=== PATIENT | female | born 1945 | race Caucasian/White ===

== ENCOUNTER 2017-04-25 00:52 | Inpatient (IN) | payer MEDICARE, BC ==
[~2017-04-25] VITALS: Ht 154.9 cm; Wt 61.0 kg
[2017-04-25] VITALS (474 sets, daily range): BP systolic 138–159; BP diastolic 58–76; PULSE 79–96; TEMP 98.1–98.6; O2SAT 82–99
[2017-04-25] MEDS ORDERED: MOBIC15 MG PO (01:50)
[2017-04-25 02:16] LABS: HEMATOCRIT 37.3 % (37.0-47.0); MEAN CELL VOLUME 103 fl (80.0-100.0); MEAN CORPUSCULAR HEMOGLOBIN 33 pg (27.0-31.0); MEAN CORPUSCULAR HGB CONC 32 g/dl (33.0-37.0); MEAN PLATELET VOLUME 12.5 fl (7.4-10.4); PLATELET COUNT 419 K/mm3 (130-400); RED BLOOD COUNT 3.61 M/mm3 (4.10-5.30)
[2017-04-25 02:17] LABS: HEMOGLOBIN 11.9 g/dl (12.5-16.0); WHITE BLOOD COUNT 20.3 K/mm3 (4.8-10.8)
[2017-04-25 02:18] LABS: ADD PATHOLOGY DIFF REVIEW NO
[2017-04-25 02:24] LABS: ADJUSTED CALCIUM 9.2 mg/dL (8.4-10.2); ALANINE AMINOTRANSFERASE 27 U/L (9-52); ALBUMIN 4.5 gm/dL (3.5-5.0); ALKALINE PHOSPHATASE 98 U/L (50-136); ANION GAP 11 mmol/L (7-16); BILIRUBIN,TOTAL 0.5 mg/dL (0.0-1.0); BLOOD UREA NITROGEN 15 mg/dL (7-17); C-REACTIVE PROTEIN 3.7 mg/dL (0.0-0.9); CALCIUM 9.6 mg/dL (8.4-10.2); CARBON DIOXIDE 26 mmol/L (22-30); CHLORIDE 105 mmol/L (98-107); CREATININE, serum 0.73 mg/dL (0.52-1.25); GLUCOSE 130 mg/dL (74-106); SODIUM 141 mmol/L (137-145); TOTAL PROTEIN 7.9 gm/dL (6.4-8.2)
[2017-04-25 02:35] LABS: TROPONIN-I < 0.012 ng/mL (0.000-0.034)
[2017-04-25 02:48] LABS: INFLUENZA A NEGATIVE; INFLUENZA B NEGATIVE
[2017-04-25 02:50] LABS: BAND 3 % (0-10); EOSINOPHIL 5 % (0-4); LYMPHOCYTE 11 % (20.0-51.0); NEUTROPHILS 70 % (42.0-75.2); PLATELET ESTIMATE INCREASED (NORMAL); TOTAL CELLS COUNTED 100
[2017-04-26 03:30] VITALS: BP 118/58; PULSE 78; TEMP 98.3
[2017-04-26 06:30] LABS: MEAN CELL VOLUME 103 fl (80.0-100.0); MEAN CORPUSCULAR HGB CONC 32 g/dl (33.0-37.0); MEAN PLATELET VOLUME 12.1 fl (7.4-10.4); PLATELET COUNT 386 K/mm3 (130-400); RED BLOOD COUNT 3.13 M/mm3 (4.10-5.30)
[2017-04-26 06:32] LABS: HEMATOCRIT 32.2 % (37.0-47.0); HEMOGLOBIN 10.3 g/dl (12.5-16.0); MEAN CORPUSCULAR HEMOGLOBIN 33 pg (27.0-31.0); WHITE BLOOD COUNT 25.8 K/mm3 (4.8-10.8)
[2017-04-26 06:33] LABS: ADD PATHOLOGY DIFF REVIEW NO
[2017-04-26 06:41] LABS: CALCIUM 8.9 mg/dL (8.4-10.2); CREATININE, serum 0.69 mg/dL (0.52-1.25); POTASSIUM 3.9 mmol/L (3.4-5.0)
[2017-04-26 07:17] VITALS: BP 111/56; PULSE 72; TEMP 97.5
[2017-04-26 08:02] LABS: BAND 12 % (0-10); LYMPHOCYTE 3 % (20.0-51.0); NEUTROPHILS 84 % (42.0-75.2); TOTAL CELLS COUNTED 100
[2017-04-26 08:03] LABS: PLATELET ESTIMATE NORMAL (NORMAL)
[2017-04-26 08:04] LABS: ANISOCYTOSIS 1+
[2017-04-26 08:05] LABS: HYPOCHROMIA 1+
[2017-04-26] MEDS ORDERED: DECADRON 4MG TAB4 MG PO ×2 (09:22→11:59)
[2017-04-26] MEDS ORDERED: AUGMENTIN ES-6125 ML PO (09:22)
== END 2017-04-26 11:15 | disposition home or self-care (01) | DRG 153 ==
LOC: COL.ER 00:52 → ICU 05:17 → MEDICAL 16:15
PROVIDERS: Emergency Medicine; Nurse Practitioner Family
PROC: 0CJS8ZZ Inspection of Larynx, Via Natural or Artificial Opening Endoscopic (ICD-10-PCS; principal; 2017-04-25)
DX: J04.0 Acute laryngitis (principal); J05.10 Acute epiglottitis without obstruction; R65.10 Systemic inflammatory response syndrome (SIRS) of non-infectious origin without acute organ dysfunction; D53.9 Nutritional anemia, unspecified; D69.6 Thrombocytopenia, unspecified; Z90.5 Acquired absence of kidney; Z90.81 Acquired absence of spleen
CPT/HCPCS: 99222-AI; 99239; J1100; J1644; J2543; J3370; J7030; J7050; J7120; Q9967

== ENCOUNTER 2017-10-15 08:22 | Day surgery (SDC) | payer MEDICARE, BC ==
[~2017-10-15] VITALS: Ht 157.5 cm; Wt 58.4 kg
[~2017-10-15 08:22] MED LIST: AUGMENTIN ES-6125 ML PO; DECADRON 4MG TAB4 MG PO; MOBIC15 MG PO
[2017-10-15] MEDS ORDERED: ADVIL200 MG PO (08:50)
[2017-10-15 09:13] VITALS: BP 144/61; PULSE 79; TEMP 98.3
[2017-10-15] MEDS ORDERED: NORCO 325 MG-51 TAB PO (10:53)
[2017-10-15 10:54] VITALS: BP 131/62; PULSE 79; TEMP 97.3
[2017-10-15 11:09] VITALS: BP 134/55; PULSE 68
[2017-10-15 11:24] VITALS: BP 131/60; PULSE 66
[2017-10-15 11:39] VITALS: BP 137/59; PULSE 72
[2017-10-15 12:09] VITALS: BP 136/70; PULSE 84
== END 2017-10-15 12:23 | disposition home or self-care (01) ==
LOC: SDCO 08:22
DX: C18.2 Malignant neoplasm of ascending colon (principal); C78.7 Secondary malignant neoplasm of liver and intrahepatic bile duct; Z79.82 Long term (current) use of aspirin; Z90.81 Acquired absence of spleen; Z90.49 Acquired absence of other specified parts of digestive tract
CPT/HCPCS: C1788; J0690; J1644; J2250; J2405; J2704; J3010; J7120

== ENCOUNTER → 2018-11-07 | Outpatient (CLI) | payer MEDICARE, BC ==
[~2018-11-07] MED LIST changes: +ADVIL200 MG PO; +NORCO 325 MG-51 TAB PO
== END ==
LOC: COL.RAD 07:22
DX: C18.2 Malignant neoplasm of ascending colon (principal); C78.7 Secondary malignant neoplasm of liver and intrahepatic bile duct; D50.9 Iron deficiency anemia, unspecified; D70.2 Other drug-induced agranulocytosis; Z95.828 Presence of other vascular implants and grafts; Z90.5 Acquired absence of kidney; Z90.81 Acquired absence of spleen
CPT/HCPCS: Q9967